=== PATIENT | male | born 1975 | race Caucasian/White ===

== ENCOUNTER → 2020-06-17 15:38 | Outpatient (CLI) | payer OTHER, MEDICAID, SELFPAY ==
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
== END ==
PROVIDERS: PCP Registered Nurse; Referring Provider Physician Assistant; Visit Provider Physician Assistant
DX: S67.194A Crushing injury of right ring finger, initial encounter (principal); M79.89 Other specified soft tissue disorders; X58.XXXA Exposure to other specified factors, initial encounter
CPT/HCPCS: 73140

== ENCOUNTER → 2020-12-06 07:01 | Outpatient (CLI) | payer OTHER, MEDICAID, SELFPAY ==
[2020-12-06 08:43] LABS: Add Manual Diff / Slide Review NO; Basophils Absolute Auto 100 /uL (0-100); Basophils Percent Auto 1.1 % (0-2); Eosinophils Absolute Auto 200 /uL (0-450); Eosinophils Percent Auto 3.1 % (2-4); Hematocrit 46.5 % (41-53); Hemoglobin 15.6 g/dL (13.5-17.5); Lymphocytes Absolute Auto 2100 /uL (1100-4500); Lymphocytes Percent Auto 31.1 % (25-40); Mean Corpuscular HGB Conc 33.6 % (30-36); Mean Corpuscular Hemoglobin 29.8 PG (26-34); Mean Corpuscular Volume 88.7 fL (80-100); Monocytes Absolute Auto 700 /uL (0-900); Monocytes Percent Auto 10.7 % (3-14); Neutrophils Absolute Auto 3600 /uL (1500-7000); Platelet Count 232 X10^3/uL (150-400); Red Blood Cell Count 5.24 X10^6/uL (4.5-5.9); Red Cell Distribution Width 13.5 % (11.6-14.8); White Blood Cell Count 6.6 X10^3/uL (4.5-11.0)
[2020-12-06 09:08] LABS: Alanine Aminotransferase 37 IU/L (<50); Albumin Globulin Ratio 1.3 (1.0-2.8); Alkaline Phosphatase 48 U/L (38-126); Aspartate Aminotransferase 29 IU/L (17-59); BUN Creatinine Ratio 15.8 (6-22); Bilirubin Total 0.6 mg/dL (0.2-1.3); Blood Urea Nitrogen 12 mg/dL (9-20); Calcium 9.1 mg/dL (8.4-10.2); Carbon Dioxide 29 mmol/L (22-32); Chloride 105 mmol/L (98-107); Cholesterol 201 mg/dL (140-199); Estimated Glomerular Filt Rate > 60.0 mL/min (>60); Glucose 104 mg/dL (70-100); HDL Cholesterol 26 mg/dL (40-60); HEMOLYSIS < 15 (0-50); LDL Cholesterol Calculated 155 mg/dL (<100); Potassium 4.3 mmol/L (3.4-5.1); Sodium 140 mmol/L (137-145); Triglycerides 102 mg/dL (35-150)
[2020-12-06 11:07] LABS: Appearance Urine UA CLEAR; Bilirubin Urine UA NEGATIVE (NEGATIVE); Color Urine UA YELLOW; Glucose Urine UA NEGATIVE (Negative); Ketones Urine UA NEGATIVE (NEGATIVE); Leukocyte Esterase Urine UA NEGATIVE (NEGATIVE); Nitrite Urine UA NEGATIVE (Negative); Occult Blood Urine UA NEGATIVE (Negative); Protein Urine UA NEGATIVE (Negative); Urobilinogen Urine UA 0.2 E.U./dL (0.2); pH Urine UA 5.5 (4.5-8.0)
== END ==
PROVIDERS: PCP Registered Nurse; Referring Provider Registered Nurse; Visit Provider Registered Nurse
DX: Z00.00 Encounter for general adult medical examination without abnormal findings (principal); Z82.49 Family history of ischemic heart disease and other diseases of the circulatory system; F10.239 Alcohol dependence with withdrawal, unspecified
CPT/HCPCS: 36415; 80053; 80061; 81003; 85025

== ENCOUNTER → 2022-04-17 09:09 | Outpatient (CLI) | payer OTHER, SELFPAY ==
[2022-04-17 10:23] LABS: Influenza A - CEPHEID Flu A NEGATIVE (NEGATIVE); Influenza B - CEPHEID Flu B NEGATIVE (NEGATIVE); Respiratory Syncytial Virus Negative (Negative)
[2022-04-17 10:24] LABS: COVID-19 CEPHEID 4-PLEX PCR Negative (Negative)
== END ==
PROVIDERS: PCP Family Medicine; Visit Provider Nurse Practitioner Family
DX: R05.9 Cough, unspecified (principal)
CPT/HCPCS: 0241U

== ENCOUNTER 2022-09-22 19:54 | Emergency (ER) | payer OTHER, SELFPAY ==
[2022-09-22] VITALS (8 sets, daily range): BP systolic 137–150; BP diastolic 78–92; PULSE 86–96; RESP 16; TEMP 37.3; O2SAT 95–98; BMI 28.7
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
--- NOTE | 2022-09-22 20:24 | DI.RAD.S_ITS ---
PROCEDURE: XR SHOULDER LT MIN 2V INDICATIONS: trauma TECHNIQUE: 3 views of the shoulder were acquired. COMPARISON: None. FINDINGS: Bones: No fractures or dislocations. There is mild acromioclavicular joint degeneration. No suspicious bony lesions. Visualized ribs appear intact. Soft tissues: No suspicious soft tissue calcifications. IMPRESSION: 1. No fracture or dislocation. Dictated by: Marcus Elizabeth M.D. on 09/22/2022 at 21:34 Approved by: Marcus Elizabeth M.D. on 09/22/2022 at 21:38
--- NOTE | 2022-09-22 20:24 | DI.RAD.S_ITS ---
PROCEDURE: XR RIBS LT MIN 3V W CXR1V INDICATIONS: trauma TECHNIQUE: Three views of the left ribs were acquired, along with a single view chest. COMPARISON: None. FINDINGS: Surgical changes and devices: None. Bones and chest wall: No definite displaced rib fracture. There is a lucency projecting over the left 6th rib anterolaterally seen on 1 of the views which was not visualized on the other views and is likely artifactual. No suspicious bony lesions. Overlying soft tissues appear unremarkable. Lungs and pleura: No pleural effusions or pneumothorax. Lungs appear clear. Mediastinum: Mediastinal contours appear normal. Heart size is normal. IMPRESSION: 1. No definite displaced rib fracture. 2. Lucency projecting over the left 6th rib is suspected to be artifactual. Dictated by: Marcus Elizabeth M.D. on 09/22/2022 at 21:31 Approved by: Marcus Elizabeth M.D. on 09/22/2022 at 21:34
[2022-09-22 20:31] LABS: Add Manual Diff / Slide Review NO; Basophils Absolute Auto 100 /uL (0-100); Basophils Percent Auto 0.5 % (0-2); Eosinophils Absolute Auto 200 /uL (0-450); Eosinophils Percent Auto 1.5 % (2-4); Hemoglobin 14.7 g/dL (13.5-17.5); Lymphocytes Absolute Auto 2400 /uL (1100-4500); Lymphocytes Percent Auto 19.4 % (25-40); Mean Corpuscular HGB Conc 34.2 % (30-36); Mean Corpuscular Hemoglobin 30.3 PG (26-34); Mean Corpuscular Volume 88.7 fL (80-100); Monocytes Absolute Auto 1000 /uL (0-900); Monocytes Percent Auto 8.4 % (3-14); Neutrophils Absolute Auto 8800 /uL (1500-7000); Neutrophils Percent Auto 70.2 % (50-75); Platelet Count 226 X10^3/uL (150-400); Red Blood Cell Count 4.84 X10^6/uL (4.5-5.9); Red Cell Distribution Width 13.5 % (11.6-14.8); White Blood Cell Count 12.5 X10^3/uL (4.5-11.0)
[2022-09-22] MEDS: KETOROLAC 30 MG/ML VIAL 15 MG IV (20:31)
[2022-09-22 20:43] LABS: Alanine Aminotransferase 28 IU/L (<50); Albumin 4.3 g/dL (3.5-5.0); Albumin Globulin Ratio 1.5 (1.0-2.8); Alkaline Phosphatase 77 U/L (38-126); Aspartate Aminotransferase 30 IU/L (17-59); BUN Creatinine Ratio 28.8 (6-22); Bilirubin Total 0.4 mg/dL (0.2-1.3); Blood Urea Nitrogen 21 mg/dL (9-20); Calcium 8.9 mg/dL (8.4-10.2); Carbon Dioxide 26 mmol/L (22-32); Chloride 105 mmol/L (98-107); Estimated Glomerular Filt Rate > 60 mL/min (>60); Globulin 2.9 g/dL (1.7-4.1); Glucose 94 mg/dL (70-100); HEMOLYSIS 31 (0-50); Lipase 116 U/L (23-300); Sodium 138 mmol/L (137-145); Total Protein 7.2 g/dL (6.3-8.2)
== END 2022-09-22 22:50 | disposition home or self-care (01) ==
PROVIDERS: Emergency Provider Emergency Medicine; PCP Family Medicine
DX: S49.92XA Unspecified injury of left shoulder and upper arm, initial encounter (principal); S20.212A Contusion of left front wall of thorax, initial encounter; V19.9XXA Pedal cyclist (driver) (passenger) injured in unspecified traffic accident, initial encounter; Y93.55 Activity, bike riding
CPT/HCPCS: 36415; 71101; 73030; 80053; 83690; 85025; 96374; 99284; J1885

== ENCOUNTER → 2023-06-19 08:51 | Outpatient (CLI) | payer OTHER, SELFPAY ==
[2023-06-19 10:37] LABS: Alanine Aminotransferase 36 IU/L (<50); Albumin 4.3 g/dL (3.5-5.0); Albumin Globulin Ratio 1.7 (1.0-2.8); Alkaline Phosphatase 56 U/L (38-126); Aspartate Aminotransferase 26 IU/L (17-59); BUN Creatinine Ratio 26.5 (6-22); Bilirubin Total 0.5 mg/dL (0.2-1.3); Blood Urea Nitrogen 22 mg/dL (9-20); Calcium 9.4 mg/dL (8.4-10.2); Carbon Dioxide 26 mmol/L (22-32); Chloride 104 mmol/L (98-107); Cholesterol 224 mg/dL (140-199); Estimated Glomerular Filt Rate > 60 mL/min (>60); Globulin 2.6 g/dL (1.7-4.1); Glucose 101 mg/dL (70-100); HDL Cholesterol 35 mg/dL (40-60); HEMOLYSIS < 15 (0-50); LDL Cholesterol Calculated 174 mg/dL (<100); Potassium 4.5 mmol/L (3.4-5.1); Sodium 138 mmol/L (137-145); Total Protein 6.9 g/dL (6.3-8.2); Triglycerides 76 mg/dL (35-150)
== END ==
PROVIDERS: PCP Family Medicine; Referring Provider Family Medicine; Visit Provider Family Medicine
DX: E78.5 Hyperlipidemia, unspecified (principal); I10 Essential (primary) hypertension
CPT/HCPCS: 36415; 80053; 80061

== ENCOUNTER → 2024-06-09 07:02 | Outpatient (CLI) | payer OTHER, SELFPAY ==
[2024-06-09 07:39] LABS: Add Manual Diff / Slide Review NO; Basophils Absolute Auto 100 /uL (0-100); Basophils Percent Auto 1.1 % (0-2); Eosinophils Absolute Auto 300 /uL (0-450); Eosinophils Percent Auto 4.7 % (2-4); Hematocrit 49.1 % (41-53); Hemoglobin 16.3 g/dL (13.5-17.5); Lymphocytes Absolute Auto 2000 /uL (1100-4500); Lymphocytes Percent Auto 29.8 % (25-40); Mean Corpuscular HGB Conc 33.2 % (30-36); Mean Corpuscular Hemoglobin 30.3 PG (26-34); Mean Corpuscular Volume 91.4 fL (80-100); Monocytes Absolute Auto 700 /uL (0-900); Monocytes Percent Auto 10.9 % (3-14); Neutrophils Absolute Auto 3600 /uL (1500-7000); Neutrophils Percent Auto 53.5 % (50-75); Platelet Count 232 X10^3/uL (150-400); Red Blood Cell Count 5.37 X10^6/uL (4.5-5.9); Red Cell Distribution Width 13.3 % (11.6-14.8); White Blood Cell Count 6.8 X10^3/uL (4.5-11.0)
[2024-06-09 08:14] LABS: Alanine Aminotransferase 38 IU/L (<50); Albumin 4.5 g/dL (3.5-5.0); Alkaline Phosphatase 57 U/L (38-126); Aspartate Aminotransferase 31 IU/L (17-59); BUN Creatinine Ratio 22.2 (6-22); Bilirubin Total 0.8 mg/dL (0.2-1.3); Blood Urea Nitrogen 20 mg/dL (9-20); Calcium 9.4 mg/dL (8.4-10.2); Carbon Dioxide 29 mmol/L (22-32); Chloride 103 mmol/L (98-107); Cholesterol 167 mg/dL (140-199); Estimated Glomerular Filt Rate > 60 mL/min (>60); Globulin 2.3 g/dL (1.7-4.1); Glucose 99 mg/dL (70-100); HDL Cholesterol 37 mg/dL (40-60); HEMOLYSIS < 15 (0-50); LDL Cholesterol Calculated 117 mg/dL (<100); Potassium 4.4 mmol/L (3.4-5.1); Sodium 139 mmol/L (137-145); Total Protein 6.8 g/dL (6.3-8.2); Triglycerides 66 mg/dL (35-150)
[2024-06-09 08:43] LABS: Prostate Specific Antigen 1.82 ng/mL (0.10-4.00)
== END ==
PROVIDERS: PCP Family Medicine; Referring Provider Family Medicine; Visit Provider Family Medicine
DX: Z00.00 Encounter for general adult medical examination without abnormal findings (principal); E78.5 Hyperlipidemia, unspecified; I10 Essential (primary) hypertension
CPT/HCPCS: 36415; 80053; 80061; 84153; 85025

== ENCOUNTER → 2024-12-20 08:37 | Outpatient (CLI) | payer OTHER, SELFPAY ==
--- NOTE | 2024-12-20 08:39 | DI.RAD.S_ITS ---
PROCEDURE: XR WRIST RT MIN 3V INDICATIONS: Traumatic right wrist injury 1 month ago, continued pain TECHNIQUE: 4 views of the wrist were acquired. COMPARISON: None. FINDINGS: Bones: Right wrist without definite acute osseous abnormalities of the scaphoid. Remainder of the visualized osseous structures appear intact. Soft tissues: No suspicious soft tissue calcifications. IMPRESSION: Right wrist without acute fracture or dislocation. No definite fracture of the scaphoid. If there is persistent clinical concern for occult fracture given adequate mechanism of injury, consider repeat imaging in 10-14 days. Immobilization as clinically indicated. Dictated by: Santos Nunez M.D. on 12/20/2024 at 12:31 Approved by: Santos Nunez M.D. on 12/20/2024 at 12:32
== END ==
PROVIDERS: PCP Family Medicine; Referring Provider Family Medicine; Visit Provider Chiropractor
DX: M25.531 Pain in right wrist (principal)
CPT/HCPCS: 73110

== ENCOUNTER → 2024-12-21 09:54 | Outpatient (CLI) | payer OTHER, SELFPAY ==
--- NOTE | 2024-12-21 18:21 | DI.NM.S_ITS ---
DATE OF SERVICE: 12/21/2024 EXERCISE TREADMILL STRESS TEST PROCEDURE: Exercise treadmill stress test without imaging. ORDERING PROVIDER: Dr. Issac Mcguire. INDICATIONS: The patient is a 49-year-old male with hypertension, hyperlipidemia, and dizziness. FINDINGS: 1. The patient was able to exercise for 12 minutes on a standard Jomar protocol suggesting very good exercise capacity with an WILD of -13%, achieving 12.8 METS. 2. He had a somewhat accelerated heart rate response to exercise with a resting heart rate of 106 bpm increasing to a maximum of 197 bpm (116% of his predicted maximum). He had a normal blood pressure response. 3. He had moderate exertional dyspnea but no chest discomfort or other anginal symptoms. 4. His resting ECG showed sinus tachycardia but normal ST segments. With stress, there are no significant ST-segment shifts. The patient maintaied sinus rhythm throughout without any arrhythmias. IMPRESSION: 1. Normal exercise treadmill stress test for ischemia. 2. Very good exercise capacity without angina. 3. Mild resting sinus tachycardia with an accelerated heart rate response to exercise but without any arrhythmias. Yovanny Osorio - VU/ashok/FAITH doc#: [id number]/job#: [id number] dd: 12/21/2024 17:42:00 dt: 12/21/2024 17:54:00 DICTATING MD/COPIES TO: Riccardo Aeyrs MD; Issac Mcguire, COPIES MNE: RAJAT;
== END ==
LOC: NUCM 09:54
PROVIDERS: PCP Family Medicine; Referring Provider Family Medicine; Visit Provider Family Medicine
DX: R07.9 Chest pain, unspecified (principal)
CPT/HCPCS: 93017

== ENCOUNTER → 2025-01-31 08:34 | Outpatient (CLI) | payer OTHER, SELFPAY ==
--- NOTE | 2025-01-31 08:35 | DI.RAD.S_ITS ---
PROCEDURE: XR SHOULDER LT MIN 2V INDICATIONS: Rule out fracture/dislocation TECHNIQUE: 3 views of the shoulder were acquired. COMPARISON: [facility], CR, XR SHOULDER LT MIN 2V, 09/22/2022, 20:27. FINDINGS: Bones: No fractures or dislocations. Moderate acromioclavicular joint osteoarthritic changes are seen. Mild glenohumeral joint osteoarthritic changes also noted. No suspicious bony lesions. Visualized ribs appear intact. Soft tissues: No suspicious soft tissue calcifications. IMPRESSION: No acute shoulder fracture or dislocation. Moderate acromioclavicular joint osteoarthritis and mild glenohumeral joint osteoarthritis slightly worsened compared to 2022 study. Dictated by: Edmar Haddad M.D. on 01/31/2025 at 8:50 Approved by: Edmar Haddad M.D. on 01/31/2025 at 8:51
== END ==
PROVIDERS: PCP Family Medicine; Referring Provider Chiropractor; Visit Provider Chiropractor
DX: S40.012A Contusion of left shoulder, initial encounter (principal); M25.612 Stiffness of left shoulder, not elsewhere classified; M19.012 Primary osteoarthritis, left shoulder; X58.XXXA Exposure to other specified factors, initial encounter
CPT/HCPCS: 73030

== ENCOUNTER → 2025-03-20 07:18 | Outpatient (CLI) | payer OTHER, SELFPAY ==
--- NOTE | 2025-03-20 07:19 | DI.MRI.S_ITS ---
PROCEDURE: MR SHOULDER LT WO CON INDICATIONS: left shoulder pain, potential tear TECHNIQUE: Noncontrast oblique coronal T2 fast spin echo with fat saturation, oblique sagittal T1 spin echo and T2 fast spin echo with fat saturation, axial T1 spin echo and T2 fast spin echo with fat saturation through the shoulder. COMPARISON: None. FINDINGS: Image quality: Excellent. Some images are limited by patient motion, pulsation or other artifacts. Rotator cuff: Abnormal appearance with rotator cuff tears. Full-thickness tear of the mid and distal supraspinatus with up to approximately 3.5 cm myotendinous retraction and diffuse heterogeneous edema of the proximal supraspinatus muscle. Full- thickness tear of the mid and distal infraspinatus superiorly with up to approximately 3 cm myotendinous retraction. And heterogeneous intrasubstance signal in the muscle and tendon proximally. Tendinopathy with partial tear of the distal subscapularis without significant myotendinous retraction. Teres minor is normal. Mild fatty atrophy of supraspinatus and infraspinatus. Bones and bursae: Moderate degenerative changes of the acromioclavicular joint with joint space narrowing, osteophytes, subchondral edema, subchondral cyst, capsular hypertrophy. Type 2 laterally downsloping acromion with decreased subacromial space measures 3 mm at its narrowest some of which may be related to cephalad subluxation of the humeral head due to rotator cuff tears. [id number] degenerative changes of the glenohumeral joint with diffuse cartilage thinning, heterogeneous signal in the superior labrum may be related to degenerative changes or chronic SLAP tear. No MR evidence of fracture or significant bone contusion. Capsule and soft tissues: Moderate glenohumeral joint effusion. Biceps tendon is located within the biceps groove there is increased T2 weighted signal and thinning of the biceps anchor suggest tendinopathy versus partial tear without complete tear or retraction. IMPRESSION: Full-thickness rotator cuff tears as discussed above most notably supraspinatus and infraspinatus. Tendinopathy distal subscapularis. Tendinopathy of the biceps anchor. Moderate effusion. Degenerative changes. Other findings as above Dictated by: Anselmo Magallon M.D. on 03/21/2025 at 15:44 Approved by: Anselmo Magallon M.D. on 03/21/2025 at 15:50
== END ==
LOC: MRI 07:19
PROVIDERS: PCP Family Medicine; Referring Provider Family Medicine; Visit Provider Family Medicine
DX: S46.012A Strain of muscle(s) and tendon(s) of the rotator cuff of left shoulder, initial encounter (principal); M25.412 Effusion, left shoulder; M75.82 Other shoulder lesions, left shoulder; X58.XXXA Exposure to other specified factors, initial encounter
CPT/HCPCS: 73221